=== PATIENT | female | born 1985 | race Caucasian/White ===

== ENCOUNTER 2021-03-15 17:42 | Observation (INO) ==
--- NOTE | 2021-03-15 18:04 | Emergency Department Note ---
HPI General Chief complaint: Recheck/Abnormal Lab/Rx Stated complaint: lab recheck Time Seen by Provider: 03/15/21 17:51 Source: patient Mode of arrival: ambulatory Limitations: no limitations History of Present Illness HPI Narrative: This is a 35-year-old female patient with hypertensive CKD who presents from her primary care doctor's office today for abnormal labs. Last creatinine was 3.6 in 05/11, now with a creatinine of 4.2. Additionally she has a potassium of 2.8. Medication list includes bumetanide daily and metolazone QOD. She is also on losartan and carvedilol. The patient relocated here from the [facility]. Her previous reliability engineer put her on bumetanide and metolazone, which has been continued by her current PCP. The patient makes urine and denies decreased urine output. The patient also has a history of heroin use now in recovery on Suboxone. She is also complaining of epigastric pain. This has been ongoing for her but much worse in the last 3 days. She describes it as a "burning sensation." No nausea or vomiting, no melena or hematochezia. Her medication list does include omeprazole 20 mg daily. She also has a history of pancreatitis and was admitted last year for this. She is status post cholecystectomy. She had an aortic dissection with repair several years ago. She has her [place] aortic valve status post repair. Drinks alcohol occasionally. Related Data Home Medications Medication Instructions Recorded Confirmed buprenorphine-naloxone 14 mg SL DAILY 03/05/20 01/28/21 carvedilol 25 mg PO BID 03/05/20 03/16/21 omeprazole 20 mg PO DAILY 03/05/20 01/28/21 tizanidine 2 mg PO PRN PRN 03/05/20 01/28/21 losartan 25 mg tablet 25 mg PO QDAY 04/25/20 03/16/21 bumetanide 2 mg tablet 2 mg PO QHS tab 04/26/20 03/16/21 ondansetron HCl 4 mg tablet 4 mg PO Q8H 05/11/20 01/28/21 buspirone 15 mg tablet 15 mg PO QDAY tab 10/31/20 03/16/21 escitalopram oxalate 20 mg tablet 20 mg PO QDAY 10/31/20 01/28/21 Previous Rx's Medication Instructions Recorded nifedipine 30 mg tablet,extended 30 mg PO HS #180 tab 05/11/20 release metolazone 2.5 mg tablet 2.5 mg PO Q OTHER DAY PRN #45 tab 01/28/21 potassium chloride 10 mEq 20 meq PO QDAY #90 tab 01/28/21 tablet,extended release Allergies Allergy/AdvReac Type Severity Reaction Status Date / Time No Known Drug Allergies Allergy Verified 01/28/21 13:24 Review of Systems ROS ROS Narrative: Narrative: All systems ED: reviewed and negative except as stated. PFSH Narrative Patient History Narrative: Narrative: Medical/Surgical/Family History All Active Problems (Updated 03/15/21 @ 20:43 by Lemuel Valentin MD) Current tobacco use (Acute) Gout (Acute) Stage 2 acute kidney injury (Acute) Diuretic-induced hypokalemia (Acute) Epigastric abdominal pain (Acute) CKD (chronic kidney disease) stage 5, GFR less than 15 ml/min (Acute) Hypokalemia (Acute) Localized edema due to fluid overload (Chronic) CKD (chronic kidney disease), stage IV (Acute) Metabolic acidosis (Chronic) Aortic insufficiency (Chronic) Anxiety disorder (Chronic) Other psychoactive substance abuse, in remission (Chronic) Biliary acute pancreatitis with uninfected necrosis (Chronic) Opioid dependence in remission (Chronic) Hyperkalemia (Chronic) Hypertension (Chronic) Pancreatitis (Chronic) Medical History Anxiety disorder Aortic insufficiency Biliary acute pancreatitis with uninfected necrosis Cholelithiasis Hyperkalemia Hypertension diagnosed at age 17 Metabolic acidosis Opioid dependence in remission Other psychoactive substance abuse, in remission Pancreatitis Surgical History History of aortic dissection (~2018) History of laparoscopic cholecystectomy Family History Mother Bipolar disorder Social History Smoking Status: Current every day smoker Alcohol Intake Frequency: does not drink Substance Use: former substance user Exam Narrative Narrative: General: AOx3, NAD, nontoxic appearing. Pleasant and conversant. HEENT: PERRLA, EOMI, normocephalic. Moist mucous membranes. Normal facies and normal dentition. Respiratory: Lungs clear to auscultation bilaterally. No respiratory distress. Unlabored breathing. Heart: Regular rate and rhythm, no murmurs/clicks/rubs. Abdomen: Notable epigastric tenderness that extends to the right upper quadrant, Non distended, normal bowel tones. No organomegaly. Extremities: Warm and well perfused. No edema. DP 2+ bilaterally. No venous stasis. Neuro: No focal deficits. Cranial nerves II-XII normal. Skin: Warm dry, no rashes or lesions, no cyanosis. Psych: Normal mood and affect Heme/Lymph: No bruising General Limitations: no limitations Course Course Course Narrative: 35-year-old female with hypertensive CKD is seen for abnormal labs and epigastric pain Reevaluation(s) Reevaluation #1: Repeat CMP, magnesium, check a lipase The patient appears well and is euvolemic on exam. The patient is given 1 dose of 1 mg Ativan for anxiety Reevaluation #2: CMP shows a creatinine of 4.2 and a potassium of 2.8 IV fluids been ordered for the patient and she is being given oral potassium replacement 60 mEq We will hold her bumetanide and metolazone I have spoken with her reliability engineer, Dr. Montilla, and he sees no indication for dialysis at this time. He recommends holding her loop diuretic and replacing her potassium. He will be out of the office next week and is not available for close follow-up. Regarding her epigastric pain, a lipase has been ordered and is pending. I am giving her a one-time IV dose of Pepcid. Vital Signs Vital signs: Vital Signs Temperature 98.4 F 03/15/21 17:43 Pulse Rate 81 03/15/21 17:43 Respiratory Rate 16 03/15/21 17:43 Blood Pressure 167/96 03/15/21 17:43 Pulse Oximetry (%) 98 03/15/21 17:43 Temperature 99.1 F H 03/16/21 07:52 Pulse Rate 67 03/16/21 06:07 Respiratory Rate 14 03/16/21 07:52 Blood Pressure 189/91 03/16/21 07:52 Pulse Oximetry (%) 93 03/16/21 07:52 MDM MDM Narrative Medical decision making narrative: Hypokalemia At risk for acute kidney injury Epigastric pain CKD stage IV/V I have spoken with the hospitalist for observation admission and correction of her hypokalemia, fluid hydration, and medication adjustments. The hospitalist has agreed for observation admission at this time and the patient meets observation criteria. Lab Data Result diagrams: 03/15/21 18:03 03/16/21 00:28 Labs: Lab Results 03/15/21 03/15/21 03/15/21 Range/Units 18:03 18:03 18:03 WBC 6.9 (4.5-11.0) K/mcL RBC 3.84 L (4.00-5.20) M/mcL Hgb 12.7 (12.0-15.0) g/dL Hct 38.1 (36.0-48.0) % MCV 99.2 (80.0-100.0) fL MCH 33.1 (26.0-34.0) pg MCHC 33.3 (31.0-36.0) g/dL RDW 11.6 (11.5-14.5) % Plt Count 160 (140-440) K/mcL MPV 11.5 H (7.4-10.4) fL Neut % (Auto) 68.9 (38.0-78.0) % Lymph % (Auto) 22.8 (15.0-49.0) % [place] % (Auto) 7.2 (1.0-12.0) % Eos % (Auto) 0.7 (0.0-7.0) % Baso % (Auto) 0.4 (0.0-2.0) % Lymph # (Auto) 1.58 (1.50-4.80) K/mcL [place] # (Auto) 0.50 (0.10-0.90) K/mcL Eos # (Auto) 0.05 (0.00-0.70) K/mcL Baso # (Auto) 0.03 (0.00-0.20) K/mcL Absolute Neutrophils 4.78 (1.80-8.00) K/mcL Sodium 133 (133-145) mmol/L Potassium 2.8 L* (3.3-5.1) mmol/L Chloride 92 L (96-108) mmol/L Carbon Dioxide 31 H (22-30) mmol/L Anion Gap 10.0 (8.0-16.0) BUN 66 H (6-20) mg/dL Creatinine 4.2 H (0.6-1.1) mg/dL GFR Calculation 13 Glucose 92 (70-105) mg/dL Calcium 9.3 (8.6-10.4) mg/dL Phosphorus 3.9 (2.5-4.5) mg/dL Magnesium 2.9 H (1.6-2.5) mg/dL Total Bilirubin 0.4 (0.1-1.0) mg/dL AST 66 H (<32) U/L ALT 45 H (<40) U/L Alkaline Phosphatase 196 H (39-117) U/L Total Protein 7.9 (5.9-8.4) gm/dL Albumin 4.4 (3.2-5.2) gm/dL Globulin 3.5 (2.2-3.7) gm/dL Albumin/Globulin Ratio 1.3 (1.0-2.3) Lipase 29 (7-60) U/L ED POC Tests ED POC Tests: [facility] - SARS Antigen Negative Discharge Plan Patient/Caregiver Discharge Instructions Pt seen by [employer]OT AND SHOE REPAIRMAN/PA only: Yes Clinical Impression: Diuretic-induced hypokalemia, Epigastric abdominal pain, CKD (chronic kidney disease) stage 5, GFR less than 15 ml/min Patient Disposition: Xfer As Outpt/Obs ([facility]) Condition: Fair Discharge Date/Time: 03/15/21 21:50
[2021-03-15 18:49] LABS: Basophils # (Auto) 0.03 K/mcL (0.00-0.20); Basophils % (Auto) 0.4 % (0.0-2.0); Eosinophils # (Auto) 0.05 K/mcL (0.00-0.70); Eosinophils % (Auto) 0.7 % (0.0-7.0); Hematocrit 38.1 % (36.0-48.0); Hemoglobin 12.7 g/dL (12.0-15.0); Lymphocytes # (Auto) 1.58 K/mcL (1.50-4.80); Lymphocytes % (Auto) 22.8 % (15.0-49.0); Mean Cell Volume 99.2 fL (80.0-100.0); Mean Corpuscular HGB Conc 33.3 g/dL (31.0-36.0); Mean Platelet Volume 11.5 fL (7.4-10.4); Monocytes % (Auto) 7.2 % (1.0-12.0); Neutrophils % (Auto) 68.9 % (38.0-78.0); Platelet Count 160 K/mcL (140-440); RBC 3.84 M/mcL (4.00-5.20); Red Cell Distribution Width 11.6 % (11.5-14.5); WBC 6.9 K/mcL (4.5-11.0)
[2021-03-15 18:51] LABS: Phosphorous 3.9 mg/dL (2.5-4.5)
[2021-03-15 19:03] LABS: ALT/SGPT 45 U/L (<40); AST/SGOT 66 U/L (<32); Albumin 4.4 gm/dL (3.2-5.2); Albumin/Globulin Ratio 1.3 (1.0-2.3); Alkaline Phosphatase 196 U/L (39-117); Bilirubin,Total 0.4 mg/dL (0.1-1.0); Blood Urea Nitrogen 66 mg/dL (6-20); Calcium 9.3 mg/dL (8.6-10.4); Carbon Dioxide 31 mmol/L (22-30); Chloride 92 mmol/L (96-108); Globulin 3.5 gm/dL (2.2-3.7); Glomerular Filtration Rate 13; Glucose 92 mg/dL (70-105)
[2021-03-15] MEDS ORDERED: POTASSIUM CHLORIDE 20 MEQ TABLET PO ONE (19:13)
[2021-03-15] MEDS ORDERED: 0.9 % SODIUM CHLORIDE 1,000 ML IV ONE (19:15)
[2021-03-15] MEDS ORDERED: LORazepam 1 MG TABLET PO ONE (19:53)
[2021-03-15] MEDS ORDERED: FAMOTIDINE/PF 20 MG/2 ML VIAL IV ONE (19:54)
[2021-03-15] MEDS ORDERED: 0.9 % SODIUM CHLORIDE 1,000 ML IV SCH (20:30)
[2021-03-15] MEDS ORDERED: ACETAMINOPHEN 325 MG TABLET PO PRN (20:30)
[2021-03-15] MEDS ORDERED: oxyCODONE HCL 5 MG TABLET PO PRN (20:30)
[2021-03-15] MEDS ORDERED: traZODone HCL 50 MG TABLET PO PRN ×2 (20:30→21:58)
[2021-03-15] MEDS ORDERED: ONDANSETRON 4 MG/2 ML VIAL IV PRN ×2 (20:30→21:58)
--- NOTE | 2021-03-15 20:49 | Internal Med History&Physical ---
HPI History of Present Illness Patient information: Note initiated : 03/15/21 at 8:37 pm Service Date, if different from initiated Date: [] Patient: Khadijah Finch a 35 y/o F admitted on for lab recheck. Chief Complaint: [] History of present illness: Ms. Finch is a 35 year old F history of aortic dissection status post repair, pancreatitis, chronic kidney disease presented with abnormal lab values. Over the past few days she has acute onset left first toe PIP joint pain, sharp, severe, localized. Over the same. Time, she also have intermittent epigastric, burning, ranging from mild to severe, pain. Due to her symptoms, she presented to her PCP office where they performed labs and found that she have elevated creatinine level as well as depressed potassium level. She was told to come to the ER for further evaluations. Repeat labs in our ER showed serum creatinine level of 4.2 (baseline 3.6), as well as a potassium level of 2.8. She declines any recent changes of her medications. Gastrointestinal Gastrointestinal: Present abdominal pain and nausea Musculoskeletal Musculoskeletal: Present arthralgias and joint swelling PFSH PFSH All Active Problems (Updated 03/15/21 @ 20:43 by Lemuel Valentin MD) Current tobacco use (Acute) Gout (Acute) Stage 2 acute kidney injury (Acute) Diuretic-induced hypokalemia (Acute) Epigastric abdominal pain (Acute) CKD (chronic kidney disease) stage 5, GFR less than 15 ml/min (Acute) Hypokalemia (Acute) Localized edema due to fluid overload (Chronic) CKD (chronic kidney disease), stage IV (Acute) Metabolic acidosis (Chronic) Aortic insufficiency (Chronic) Anxiety disorder (Chronic) Other psychoactive substance abuse, in remission (Chronic) Biliary acute pancreatitis with uninfected necrosis (Chronic) Opioid dependence in remission (Chronic) Hyperkalemia (Chronic) Hypertension (Chronic) Pancreatitis (Chronic) Medical History Anxiety disorder Aortic insufficiency Biliary acute pancreatitis with uninfected necrosis Cholelithiasis Hyperkalemia Hypertension diagnosed at age 17 Metabolic acidosis Opioid dependence in remission Other psychoactive substance abuse, in remission Pancreatitis Surgical History History of aortic dissection (~2018) History of laparoscopic cholecystectomy Family History Mother Bipolar disorder Social History marital status: legally occupational status: unemployed smoking status start date: 11/23/09 alcohol intake frequency: does not drink substance use type: former substance user MEDS/ALLERGIES Home Medications and Allergies Home Medications Medication Instructions Recorded Confirmed Type buprenorphine-naloxone 14 mg SL DAILY 03/05/20 01/28/21 History carvedilol 25 mg PO BID 03/05/20 01/28/21 History omeprazole 20 mg PO DAILY 03/05/20 01/28/21 History tizanidine 2 mg PO PRN PRN 03/05/20 01/28/21 History losartan 25 mg tablet 25 mg PO QDAY 04/25/20 01/28/21 History bumetanide 2 mg tablet 2 mg PO QHS tab 04/26/20 01/28/21 History nifedipine 30 mg tablet,extended 30 mg PO HS #180 tab 05/11/20 01/28/21 Rx release ondansetron HCl 4 mg tablet 4 mg PO Q8H 05/11/20 01/28/21 History buspirone 15 mg tablet 15 mg PO QDAY tab 10/31/20 01/28/21 History escitalopram oxalate 20 mg tablet 20 mg PO QDAY 10/31/20 01/28/21 History metolazone 2.5 mg tablet 2.5 mg PO Q OTHER DAY PRN #45 tab 01/28/21 01/28/21 Rx potassium chloride 10 mEq 20 meq PO QDAY #90 tab 01/28/21 01/28/21 Rx tablet,extended release Allergies Allergy/AdvReac Type Severity Reaction Status Date / Time No Known Drug Allergies Allergy Verified 01/28/21 13:24 EXAM Constitutional Vitals: Temp Pulse Resp BP Pulse Ox 36.9 C 73 15 151/89 100 03/15/21 17:43 03/15/21 20:01 03/15/21 20:01 03/15/21 20:01 03/15/21 20:01 General appearance: cooperative and no acute distress Head Head exam: Present atraumatic and normocephalic Eye Eye exam: Present EOMI and PERRL ENT ENT exam: Present mucous membranes moist, normal exam and normal external ear exam Neck Neck exam: Present normal inspection; Absent lymphadenopathy, tenderness and thyromegaly Respiratory Respiratory exam: Absent accessory muscle use, respiratory distress and wheezes Cardiovascular Cardiovascular exam: Present normal rate and rhythm; Absent JVD GI/Abdominal GI/Abdominal exam: Present normal bowel sounds, soft and tenderness; Absent organomegaly Extremities Exam Extremities exam: Present joint swelling, normal capillary refill and tenderness; Absent full ROM and normal inspection Neurological Exam Neurological exam: Present alert, CN II-XII intact and oriented X3; Absent motor sensory deficit Psychiatric Psychiatric exam: Present normal affect and normal mood; Absent anxious and depressed Skin Skin exam: Present dry and intact DATA Data Completed and Pending Labs: Labs from last 24 hours 03/15/21 03/15/21 03/15/21 18:03 18:03 18:03 WBC 6.9 RBC 3.84 L Hgb 12.7 Hct 38.1 MCV 99.2 MCH 33.1 MCHC 33.3 RDW 11.6 Plt Count 160 MPV 11.5 H Neut % (Auto) 68.9 Lymph % (Auto) 22.8 [place] % (Auto) 7.2 Eos % (Auto) 0.7 Baso % (Auto) 0.4 Lymph # (Auto) 1.58 [place] # (Auto) 0.50 Eos # (Auto) 0.05 Baso # (Auto) 0.03 Absolute Neutrophils 4.78 Sodium 133 Potassium 2.8 L* Chloride 92 L Carbon Dioxide 31 H Anion Gap 10.0 BUN 66 H Creatinine 4.2 H GFR Calculation 13 Glucose 92 Calcium 9.3 Phosphorus 3.9 Magnesium 2.9 H Total Bilirubin 0.4 AST 66 H ALT 45 H Alkaline Phosphatase 196 H Total Protein 7.9 Albumin 4.4 Globulin 3.5 Albumin/Globulin Ratio 1.3 Lipase 29 A/P Assessment and plan (1) CKD (chronic kidney disease) stage 5, GFR less than 15 ml/min: Status: Acute (2) Stage 2 acute kidney injury: Status: Acute (3) Hypokalemia: Status: Acute (4) Hypertension: Status: Chronic Comment: diagnosed at age 17 Qualifiers: Hypertension type: unspecified Qualified Code(s): I10 - Essential (primary) hypertension (5) Gout: Status: Acute (6) Current tobacco use: Status: Acute Narrative A/P Narrative: 1. Hypokalemia: Admit to observation med surg KCl 20mEq IV once NOW Repeat serum potassium level at midnight; if <3.5, repeat another KCl 20mEq IV once BMP in the AM to continue to trend serum potassium level 2. Acute on chronic kidney injury: Hold diuretics at this point Hold Losartan NS 1L bolus, followed by NS@125cc/hr Repeat BMP in AM to trend kidney functions 3. Gout, left 1st toe (Podagra): Indomethacin 50mg PO TID 4. Essential HTN: Okay to give Nifedipine but hold Losartan 5. Current tobacco use: Nicotine replacement therapy as needed 6. Epigastric abdominal pain: Please check serum lipase level to rule out acute pancreatitis NS 1L bolus, followed by NS@125cc/hr Oxycodone PRN moderate pain Time Spent With Patient Time: Total time spent is greater than 50% in coordination of care (as documented) at patient's floor/unit and/or counseling patient:
[2021-03-15] MEDS ORDERED: HEPARIN 5,000 UNIT/ML VIAL SQ SCH (21:00)
[2021-03-15] MEDS ORDERED: SENNOSIDES 1 TABLET PO SCH (21:00)
[2021-03-15] MEDS ORDERED: DOCUSATE SODIUM 100 MG CAPSULE PO SCH (21:00)
[2021-03-15] MEDS ORDERED: PANTOPRAZOLE 40 MG TABLET PO SCH (21:00)
[2021-03-15] MEDS ORDERED: INDOMETHACIN 25 MG CAPSULE PO SCH (21:00)
[2021-03-15] MEDS ORDERED: POTASSIUM CHLORIDE 20 MEQ in DEXTROSE 5% IN WATER 250 ML IV ONE (21:58)
[2021-03-15] MEDS ORDERED: 0.9 % SODIUM CHLORIDE 10 ML SYRINGE IV SCH (22:00)
[2021-03-15] MEDS ORDERED: POTASSIUM CHLORIDE 20 MEQ/10 ML VIAL IV ONE (22:30)
[2021-03-15] MEDS: 0.9 % SODIUM CHLORIDE 1,000 ML IV SCH (22:43)
[2021-03-15] MEDS: 0.9 % SODIUM CHLORIDE 10 ML SYRINGE IV SCH (22:45)
[2021-03-15] MEDS ORDERED: oxyCODONE HCL 5 MG TABLET PO ONE (22:53)
[2021-03-15] MEDS: oxyCODONE HCL 5 MG TABLET PO PRN (23:12)
[2021-03-16] MEDS ORDERED: POTASSIUM CHLORIDE 20 MEQ in DEXTROSE 5% IN WATER 250 ML IV PRN (01:00)
[2021-03-16] MEDS: METOPROLOL TARTRATE 5 MG/5 ML VIAL IV ONE ×4 (03:54→05:43)
[2021-03-16] MEDS: METOPROLOL TARTRATE 5 MG/5 ML VIAL IV PRN ×3 (03:54→05:58)
[2021-03-16] MEDS: 0.9 % SODIUM CHLORIDE 1,000 ML IV SCH ×3 (04:04→18:27)
[2021-03-16] MEDS: 0.9 % SODIUM CHLORIDE 10 ML SYRINGE IV SCH ×3 (04:04→20:24)
[2021-03-16] MEDS ORDERED: oxyCODONE HCL 5 MG TABLET PO ONE (04:09)
[2021-03-16] MEDS: oxyCODONE HCL 5 MG TABLET PO PRN (04:10)
[2021-03-16] MEDS ORDERED: METOPROLOL TARTRATE 5 MG/5 ML VIAL IV ONE (05:56)
[2021-03-16] MEDS ORDERED: INDOMETHACIN 25 MG CAPSULE PO SCH (09:00)
[2021-03-16 09:26] LABS: Blood Urea Nitrogen 54 mg/dL (6-20); Calcium 8.7 mg/dL (8.6-10.4); Carbon Dioxide 28 mmol/L (22-30); Chloride 101 mmol/L (96-108); Glomerular Filtration Rate 15; Glucose 77 mg/dL (70-105)
[2021-03-16] MEDS: HEPARIN 5,000 UNIT/ML VIAL SQ SCH ×3 (09:40→20:24)
[2021-03-16] MEDS: ACETAMINOPHEN 325 MG TABLET PO PRN ×2 (09:42→17:48)
[2021-03-16] MEDS: DOCUSATE SODIUM 100 MG CAPSULE PO SCH ×2 (09:55→20:24)
[2021-03-16] MEDS ORDERED: tiZANidine 4 MG TABLET PO PRN (10:03)
[2021-03-16] MEDS: METOPROLOL TARTRATE 5 MG/5 ML VIAL IV SCH ×2 (11:06→11:07)
[2021-03-16] MEDS: NALOXONE SL SCH (11:17)
[2021-03-16] MEDS: CARVEDILOL 12.5 MG TABLET PO SCH ×2 (11:17→17:42)
[2021-03-16] MEDS: BUPRENORPHINE SL SCH (11:17)
[2021-03-16] MEDS ORDERED: METOPROLOL TARTRATE 5 MG/5 ML VIAL IV PRN (11:49)
--- NOTE | 2021-03-16 12:04 | Internal Med Progress Note ---
SUBJECTIVE Subjective Patient information: Note initiated : 03/16/21 at 11:59 am Service Date, if different from initiated Date: [] Patient: Khadijah Finch 35 y/o F admitted on 03/15/21 for lab recheck. Chief Complaint: [Hypokalemia, acute kidney injury] Overnight: Serum potassium level 2.8-->2.9-->3.4-->3.2. Serum Cr level 4.2-->3.7. Blood pressure remains elevated Subjective: Denies chest pain or palpitation. Denies headache. Denies SOB. Denies confusion or lethargy. Denies abdominal pain. Denies nausea or vomiting. Constitutional Vitals: Vital Signs Temp Pulse Resp BP Pulse Ox 36.5 C 77 16 197/103 95 03/16/21 11:43 03/16/21 11:43 03/16/21 11:43 03/16/21 11:43 03/16/21 11:43 Period Temp Pulse Resp BP Sys/[place] Pulse Ox Last 24 Hr 36.5 C-37.4 C 64-81 10-19 133-197/78-103 93-100 Intake and Output 03/15/21 03/16/21 03/16/21 21:59 05:59 13:59 Intake Total 1000 926 994 Output Total 475 Balance 1000 451 994 Weight 64.155 kg 64.155 kg Intake & Output: Intake & Output 03/15/21 03/16/21 03/16/21 21:59 05:59 13:59 Intake Total 1000 926 994 Output Total 475 Balance 1000 451 994 Weight 64.155 kg 64.155 kg Intake: IV 1000 526 994 Sodium Chloride 0.9% 1,000 ml @ 1000 6 994 125 mls/hr IV .Q8H [facility] Rx#: [id number] Potassium Chloride 20 Meq In 520 Dextrose 5% in Water 250 ml @ 130 mls/hr IV PRN PRN Rx#: [id number] Oral 400 Output: Void Amount 475 Other: Meal Nourishment/Supplement Breakfast Percent of Meal Consumed 100% 100% Feeding Ability Independent Urine Appearance Clear Urine Color Bright Yellow Urine Odor Normal # Voids 1 1 General appearance: cooperative and no acute distress Head Head exam: Present atraumatic and normocephalic Eye Eye exam: Present EOMI and PERRL ENT ENT exam: Present mucous membranes moist, normal exam and normal external ear exam Neck Neck exam: Present normal inspection; Absent lymphadenopathy, tenderness and thyromegaly Respiratory Respiratory exam: Absent accessory muscle use, respiratory distress and wheezes Cardiovascular Cardiovascular exam: Present normal rate and rhythm; Absent JVD GI/Abdominal GI/Abdominal exam: Present normal bowel sounds and soft; Absent organomegaly and tenderness Extremities Exam Extremities exam: Present full ROM, normal capillary refill and normal inspection; Absent tenderness Neurological Exam Neurological exam: Present alert, CN II-XII intact and oriented X3; Absent motor sensory deficit Psychiatric Psychiatric exam: Present normal affect and normal mood; Absent anxious and depressed Skin Skin exam: Present dry and intact OBJ DATA Labs CBC & Chem 7: 03/15/21 18:03 03/16/21 07:10 Labs: Abnormal Lab Results 03/16/21 03/15/21 03/15/21 07:10 22:13 18:03 RBC MPV Potassium 3.2 L 2.9 L* 2.8 L* Chloride 92 L Carbon Dioxide 31 H Anion Gap 7.0 L BUN 54 H 66 H Creatinine 3.7 H 4.2 H Magnesium 2.9 H AST 66 H ALT 45 H Alkaline Phosphatase 196 H 03/15/21 18:03 RBC 3.84 L MPV 11.5 H Potassium Chloride Carbon Dioxide Anion Gap BUN Creatinine Magnesium AST ALT Alkaline Phosphatase Meds: Medications Acetaminophen (Acetaminophen 325 Mg Tablet) 650 mg PO Q6HP PRN; Protocol PRN Reason: Per Pain Protocol/Fever > 101 Last Admin: 03/16/21 09:42 Dose: 650 mg Documented by: Buspirone HCl (Buspirone 15 Mg Tablet) 15 mg PO QDAY [facility] Carvedilol ([facility] 12.5 Mg Tablet) [facility] Last Admin: 03/16/21 11:17 Dose: 25 mg Documented by: Docusate Sodium (Docusate Sodium 100 Mg Capsule) 100 mg PO BID [facility] Last Admin: 03/16/21 09:55 Dose: Not Given Documented by: Escitalopram Oxalate (Escitalopram 20 Mg Tablet) 20 mg PO QDAY [facility] Heparin Sodium (Porcine) (Heparin 5,000 Unit/Ml Vial) 5,000 unit SQ Q12 [facility] Last Admin: 03/16/21 09:55 Dose: Not Given Documented by: Sodium Chloride (Sodium Chloride 0.9%) 1,000 mls @ 125 mls/hr IV .Q8H [facility] Last Infusion: 03/16/21 09:55 Dose: Infused Documented by: Indomethacin (Indomethacin 25 Mg Capsule) 50 mg PO TID [facility] Last Admin: 03/16/21 09:40 Dose: 50 mg Documented by: Nifedipine (Nifedipine 30 Mg Tab.Xl.24h) 30 mg PO HS [facility] Ondansetron HCl (Ondansetron 4 Mg/2 Ml Vial) 4 mg IV Q6HP PRN PRN Reason: Nausea And Vomiting Pantoprazole Sodium (Pantoprazole 40 Mg Tablet) 40 mg PO HS [facility] Buprenorphine/Naloxone 8mg/2mg Oral Film 2 dose SL DAILY [facility] Last Admin: 03/16/21 11:17 Dose: 2 dose Documented by: Potassium Chloride (Potassium Chloride 10 Meq Tablet) 20 meq PO QDAY [facility] Senna (Sennosides 1 Tablet) 2 tab PO HS [facility] Sodium Chloride (0.9 % Sodium Chloride 10 Ml Syringe) 10 ml IV Q8 [facility] Last Admin: 03/16/21 04:04 Dose: Not Given Documented by: Tizanidine HCl (Tizanidine 4 Mg Tablet) 2 mg PO DAILYP PRN PRN Reason: Muscle Pain Trazodone HCl (Trazodone Hcl 50 Mg Tablet) 25 mg PO HSP PRN PRN Reason: Insomnia A/P Assessment and plan (1) CKD (chronic kidney disease) stage 5, GFR less than 15 ml/min: Status: Acute (2) Stage 2 acute kidney injury: Status: Acute (3) Hypokalemia: Status: Acute (4) Hypertension: Status: Chronic Comment: diagnosed at age 17 Qualifiers: Hypertension type: unspecified Qualified Code(s): I10 - Essential (primary) hypertension (5) Gout: Status: Acute (6) Current tobacco use: Status: Acute Narrative A/P Narrative: 1. Hypokalemia: Stays in observation med surg Hold diuretics that could re-introduce hypokalemia BMP in the AM to continue to trend serum potassium level 2. Acute on chronic kidney injury: Hold diuretics at this point Hold Losartan NS 1L bolus, followed by NS@125cc/hr Repeat BMP in AM to trend kidney functions 3. Gout, left 1st toe (Podagra): Indomethacin 50mg PO TID 4. Essential HTN: Okay to give Nifedipine and beta rik but hold Losartan Need to observe how her blood pressure is doing and fine turn her regimen Add Aldactone 50mg PO BID Lopressor 5mg IV q5min PRN SBP>=180mmHg and/or DBP>=110mmHg 5. Current tobacco use: Nicotine replacement therapy as needed 6. Epigastric abdominal pain: Please check serum lipase level to rule out acute pancreatitis-->29, normal, suggests AGAINST pancreatitis NS 1L bolus, followed by NS@125cc/hr Oxycodone PRN moderate pain Time Spent With Patient Time: Total time spent is greater than 50% in coordination of care (as documented) at patient's floor/unit and/or counseling patient: QUALITY VTE Deep Vein Thrombosis/Pulmonary Embolism Present on Admission: No
--- NOTE | 2021-03-16 14:15 | Internal Med Progress Note ---
SUBJECTIVE Subjective Patient information: Note initiated : 03/16/21 at 2:09 pm Service Date, if different from initiated Date: [] Patient: Khadijah Finch 35 y/o F admitted on 03/15/21 for lab recheck. Chief Complaint: [] Interval history: 03/15 Overnight: Serum potassium level 2.8-->2.9-->3.4-->3.2. Serum Cr level 4.2-->3.7. Blood pressure remains elevated 03/17 Constitutional Vitals: Vital Signs Temp Pulse Resp BP Pulse Ox 97.7 F 77 16 191/99 95 03/16/21 11:43 03/16/21 11:43 03/16/21 11:43 03/16/21 12:00 03/16/21 11:43 Period Temp Pulse Resp BP Sys/Moncada Pulse Ox Last 24 Hr 97.7 F-99.4 F 64-81 10-19 133-197/78-103 93-100 Intake and Output 03/16/21 03/16/21 03/16/21 05:59 13:59 21:59 Intake Total 926 994 Output Total 475 Balance 451 994 Weight 64.155 kg Intake & Output: Intake & Output 03/16/21 03/16/21 03/16/21 05:59 13:59 21:59 Intake Total 926 994 Output Total 475 Balance 451 994 Weight 64.155 kg Intake: IV 526 994 Sodium Chloride 0.9% 1,000 ml @ 6 994 125 mls/hr IV .Q8H CHARIS Rx#: [id number] Potassium Chloride 20 Meq In 520 Dextrose 5% in Water 250 ml @ 130 mls/hr IV PRN PRN Rx#: [id number] Oral 400 Output: Void Amount 475 Other: Meal Nourishment/Supplement Breakfast Percent of Meal Consumed 100% 100% Feeding Ability Independent Urine Appearance Clear Urine Color Bright Yellow Urine Odor Normal # Voids 1 1 Exam: General: Alert, Awake, No acute Distress Eyes/N/T: EOMI, Head/Neck: neck supple, CV: RRR, No murmurs, normal s1/s2 Pulm: Clear b/l, no wheezing/rhonchi/rales Abd: soft, nontender, +BS x4 Ext: no clubbing/cyanosis/edema Neuro: Alert, no focal deficits, moves all extremities, Skin: warm/dry OBJ DATA Labs CBC & Chem 7: 03/15/21 18:03 03/16/21 07:10 Labs: Abnormal Lab Results 03/16/21 03/15/21 03/15/21 07:10 22:13 18:03 RBC MPV Potassium 3.2 L 2.9 L* 2.8 L* Chloride 92 L Carbon Dioxide 31 H Anion Gap 7.0 L BUN 54 H 66 H Creatinine 3.7 H 4.2 H Magnesium 2.9 H AST 66 H ALT 45 H Alkaline Phosphatase 196 H 03/15/21 18:03 RBC 3.84 L MPV 11.5 H Potassium Chloride Carbon Dioxide Anion Gap BUN Creatinine Magnesium AST ALT Alkaline Phosphatase Meds: Medications Acetaminophen (Acetaminophen 325 Mg Tablet) 650 mg PO Q6HP PRN; Protocol PRN Reason: Per Pain Protocol/Fever > 101 Last Admin: 03/16/21 09:42 Dose: 650 mg Documented by: Buspirone HCl (Buspirone 15 Mg Tablet) 15 mg PO QDAY [facility] Carvedilol (Carvedilol 12.5 Mg Tablet) 25 mg PO BIDCC [facility] Last Admin: 03/16/21 11:17 Dose: 25 mg Documented by: Docusate Sodium (Docusate Sodium 100 Mg Capsule) 100 mg PO BID [facility] Last Admin: 03/16/21 09:55 Dose: Not Given Documented by: Escitalopram Oxalate (Escitalopram 20 Mg Tablet) 20 mg PO QDAY [facility]1983 Heparin Sodium (Porcine) (Heparin 5,000 Unit/Ml Vial) 5,000 unit SQ Q12 [facility] Last Admin: 03/16/21 09:55 Dose: Not Given Documented by: Sodium Chloride (Sodium Chloride 0.9%) 1,000 mls @ 125 mls/hr IV .Q8H [facility] Last Infusion: 03/16/21 09:55 Dose: Infused Documented by: Indomethacin (Indomethacin 25 Mg Capsule) 50 mg PO TID [facility] Last Admin: 03/16/21 09:40 Dose: 50 mg Documented by: Nifedipine (Nifedipine 30 Mg Tab.Xl.24h) 30 mg PO [facility] Ondansetron HCl (Ondansetron 4 Mg/2 Ml Vial) 4 mg IV Q6HP PRN PRN Reason: Nausea And Vomiting Pantoprazole Sodium (Pantoprazole 40 Mg Tablet) 40 mg PO HS [facility] Buprenorphine/Naloxone 8mg/2mg Oral Film 2 dose SL DAILY [facility] Last Admin: 03/16/21 11:17 Dose: 2 dose Documented by: Potassium Chloride (Potassium Chloride 10 Meq Tablet) 20 meq PO QDAY [facility] Senna (Sennosides 1 Tablet) 2 tab PO HS [facility] Sodium Chloride (0.9 % Sodium Chloride 10 Ml Syringe) 10 ml IV Q8 [facility] Last Admin: 03/16/21 04:04 Dose: Not Given Documented by: Spironolactone (Spironolactone 25 Mg Tablet) 50 mg PO BIDD [facility] Tizanidine HCl (Tizanidine 4 Mg Tablet) 2 mg PO DAILYP PRN PRN Reason: Muscle Pain Trazodone HCl (Trazodone Hcl 50 Mg Tablet) 25 mg PO HSP PRN PRN Reason: Insomnia A/P Narrative A/P Narrative: A: *Hypokalemia: Stays in observation med surg Hold diuretics that could re-introduce hypokalemia BMP in the AM to continue to trend serum potassium level *Acute on chronic kidney injury IV-V: Hold diuretics at this point, Hold Losartan NS 1L bolus, followed by NS@125cc/hr f/u with Neprhology *Gout, left 1st toe (Podagra): avoid NSAIDS given CKD, predisone daily *Essential HTN: Okay to give Nifedipine and coreg but hold Losartan Need to observe how her blood pressure is doing *Current tobacco use: Nicotine replacement therapy as needed *Epigastric abdominal pain likely GERD: lipase low started ppi with good results *h/o Meth/heroin: *Anxiety *ppx: heparin Time Spent With Patient Time: Total time spent is greater than 50% in coordination of care (as documented) at patient's floor/unit and/or counseling patient: [facility] VTE Deep Vein Thrombosis/Pulmonary Embolism Present on Admission: No
[2021-03-16] MEDS ORDERED: hydrALAZINE 20 MG/ML VIAL IV PRN (14:22)
--- NOTE | 2021-03-16 14:26 | Discharge Summary ---
Discharge Provider Provider Patient information: Note initiated : 03/16/21 at 2:23 pm Service Date, if different from initiated Date: [] Patient: Khadijah Finch 35 y/o F admitted on 03/15/21 for lab recheck. Chief Complaint: [] Date of admission: 03/15/21 21:50 Discharge date: 03/17/21 Primary care physician: Shashi Simon DO Discharge Meds Discharge Medications Home Medications carvedilol 25 mg PO BID 03/05/20 [History Confirmed 03/16/21 Last Taken 03/15/21] losartan 25 mg tablet 25 mg PO QHS 04/25/20 [History Confirmed 03/16/21 Last Taken 03/14/21] bumetanide 2 mg tablet 2 mg PO QHS tab 04/26/20 [History Confirmed 03/16/21 Last Taken 03/14/21] metolazone 2.5 mg tablet 2.5 mg PO Q OTHER DAY PRN #45 tab 01/28/21 [Rx Confirmed 03/16/21 Last Taken 03/11/21] buprenorphine-naloxone [Suboxone] 2 film SUBLINGUAL QDAY 03/16/21 [History Confirmed 03/16/21 Last Taken Unknown] buspirone 7.5 mg PO QHS 03/16/21 [History Confirmed 03/16/21 Last Taken Unknown] escitalopram oxalate 20 mg PO QHS 03/16/21 [History Confirmed 03/16/21 Last Taken Unknown] nifedipine 60 mg PO QAM 03/16/21 [History Confirmed 03/16/21 Last Taken Unknown] omeprazole 20 mg PO QDAY 03/16/21 [History Confirmed 03/16/21 Last Taken Unknown] ondansetron 8 mg PO Q8H PRN 03/16/21 [History Confirmed 03/16/21 Last Taken Unknown] tizanidine 4 mg PO Q6HP PRN 03/16/21 [History Confirmed 03/16/21 Last Taken Unknown] potassium chloride 20 meq PO Q48H #10 tab 03/17/21 [Rx Last Taken Unknown] prednisone 40 mg PO QDAY #1 tab 03/17/21 [Rx Last Taken Unknown] COURSE Hospital Course Hospital course: A: *Hypokalemia: Stays in observation med surg Hold diuretics that could re-introduce hypokalemia BMP in the AM to continue to trend serum potassium level *Acute on chronic kidney injury IV-V: Hold diuretics at this point, Hold Losartan NS 1L bolus, followed by NS@125cc/hr f/u with Neprhology *Gout, left 1st toe (Podagra): avoid NSAIDS given CKD, predisone daily *Essential HTN: Okay to give Nifedipine and coreg but hold Losartan Need to observe how her blood pressure is doing *Current tobacco use: Nicotine replacement therapy as needed *Epigastric abdominal pain likely GERD: lipase low started ppi with good results *h/o Meth/heroin: *Anxiety Discharge diagnosis: hypoKalemia acute kidney injury gout Secondary discharge diagnosis: Hypertension tobacco abuse history of substance abuse GERD Time Spent with Patient Time attestation: Total time spent providing and/or coordinating discharge services: Time spent: Greater than 30 minutes EXAM Constitutional Vitals: Temp Pulse Resp BP Pulse Ox 97.7 F 77 16 191/99 95 03/16/21 11:43 03/16/21 11:43 03/16/21 11:43 03/16/21 12:00 03/16/21 11:43 Discharge Data Data Completed and Pending Labs on day of discharge: Labs from last 24 hours 03/16/21 03/16/21 03/15/21 07:10 00:28 22:13 WBC RBC Hgb Hct MCV MCH MCHC RDW Plt Count MPV Neut % (Auto) Lymph % (Auto) Fleming % (Auto) Eos % (Auto) Baso % (Auto) Lymph # (Auto) Fleming # (Auto) Eos # (Auto) Baso # (Auto) Absolute Neutrophils Sodium 136 Potassium 3.2 L 3.4 2.9 L* Chloride 101 Carbon Dioxide 28 Anion Gap 7.0 L BUN 54 H Creatinine 3.7 H GFR Calculation 15 Glucose 77 Calcium 8.7 Phosphorus Magnesium Total Bilirubin AST ALT Alkaline Phosphatase Total Protein Albumin Globulin Albumin/Globulin Ratio Lipase 03/15/21 03/15/21 03/15/21 18:03 18:03 18:03 WBC 6.9 RBC 3.84 L Hgb 12.7 Hct 38.1 MCV 99.2 MCH 33.1 MCHC 33.3 RDW 11.6 Plt Count 160 MPV 11.5 H Neut % (Auto) 68.9 Lymph % (Auto) 22.8 Fleming % (Auto) 7.2 Eos % (Auto) 0.7 Baso % (Auto) 0.4 Lymph # (Auto) 1.58 Fleming # (Auto) 0.50 Eos # (Auto) 0.05 Baso # (Auto) 0.03 Absolute Neutrophils 4.78 Sodium 133 Potassium 2.8 L* Chloride 92 L Carbon Dioxide 31 H Anion Gap 10.0 BUN 66 H Creatinine 4.2 H GFR Calculation 13 Glucose 92 Calcium 9.3 Phosphorus 3.9 Magnesium 2.9 H Total Bilirubin 0.4 AST 66 H ALT 45 H Alkaline Phosphatase 196 H Total Protein 7.9 Albumin 4.4 Globulin 3.5 Albumin/Globulin Ratio 1.3 Lipase 29 Discharge Plan Patient/Caregiver Discharge Instructions Activity: increase activity as tolerated Diet: Renal Activity Restrictions/Additional Instructions: hold bumex for 2-days then restart Prescriptions: New potassium chloride 20 mEq tablet,ER particles/crystals 20 meq PO Q48H Qty: 10 RF: 0 prednisone 10 mg tablet 40 mg PO QDAY Qty: 1 RF: 0 Continued losartan 25 mg tablet 25 mg PO QHS RF: 0 bumetanide 2 mg tablet 2 mg PO QHS RF: 0 metolazone 2.5 mg tablet 2.5 mg PO Q OTHER DAY PRN (Reason: edema) Qty: 45 RF: 4 carvedilol 25 MG tablet 25 mg PO BID RF: 0 buprenorphine-naloxone [Suboxone] 8-2 mg Film 2 film SUBLINGUAL QDAY RF: 0 nifedipine 60 mg Tablet Extended Release 60 mg PO QAM RF: 0 buspirone 7.5 mg Tablet 7.5 mg PO QHS RF: 0 omeprazole 20 mg Capsule,Delayed Release(Dr/Ec) 20 mg PO QDAY RF: 0 escitalopram oxalate 20 mg Tablet 20 mg PO QHS RF: 0 ondansetron 8 mg Tablet,Disintegrating 8 mg PO Q8H PRN (Reason: Nausea) RF: 0 tizanidine 4 mg Tablet 4 mg PO Q6HP PRN (Reason: Muscle Spasm) RF: 0 Discontinued potassium 20 MG Tablet,Chewable 40 mg PO PRN MDD 40 MG PRN (Reason: TAKE WITH METALAZONE PRN) RF: 0 Other Ambulatory Orders: Basic Metabolic Panel (Routine) Timeframe: 3 Days Facility: [facility] - Location: Laboratory Ordered By: Naveed Gatica Follow Up Plan Follow up with: [place] MD [Physician] - (hypokalemia, and hypertension) Shashi Simon DO [Primary Care Provider] - Patient Disposition: Home, Self-Care Prognosis: Undetermined Overall status at discharge: patient is progressing back to baseline Discharge Orders: Discharge Order (Routine); Ordered 03/17/21 Ordered By: Naveed Gatica [facility] VTE Deep Vein Thrombosis/Pulmonary Embolism Present on Admission: No
[2021-03-16] MEDS: predniSONE 20 MG TABLET PO SCH (15:14)
[2021-03-16] MEDS ORDERED: SPIRONOLACTONE 25 MG TABLET PO SCH (16:00)
[2021-03-16] MEDS ORDERED: NIFEdipine 30 MG TAB.XL.24H PO SCH (21:00)
[2021-03-16] MEDS ORDERED: PANTOPRAZOLE 40 MG TABLET PO SCH (21:00)
[2021-03-16] MEDS ORDERED: SENNOSIDES 1 TABLET PO SCH (21:00)
[2021-03-16] MEDS ORDERED: ESCITALOPRAM 20 MG TABLET PO SCH (23:00)
[2021-03-16] MEDS ORDERED: busPIRone 15 MG TABLET PO SCH (23:00)
[2021-03-16] MEDS: LABETALOL 5 MG/ML ML IV PRN (23:16)
[2021-03-17] MEDS: ACETAMINOPHEN 325 MG TABLET PO PRN ×2 (00:08→10:10)
[2021-03-17] MEDS: LABETALOL 5 MG/ML ML IV PRN (01:39)
[2021-03-17] MEDS: 0.9 % SODIUM CHLORIDE 10 ML SYRINGE IV SCH (05:11)
[2021-03-17] MEDS: 0.9 % SODIUM CHLORIDE 1,000 ML IV SCH (05:30)
[2021-03-17] MEDS ORDERED: NIFEdipine 30 MG TAB.XL.24H PO ONE ×2 (06:46→12:44)
--- NOTE | 2021-03-17 06:48 | Internal Med Progress Note ---
SUBJECTIVE Subjective Patient information: Note initiated : 03/17/21 at 6:42 am Service Date, if different from initiated Date: [] Patient: Khadijah Finch a 35 y/o F admitted on 03/15/21 for lab recheck. Chief Complaint: [] Interval history: 03/15 Overnight: Serum potassium level 2.8-->2.9-->3.4-->3.2. Serum Cr level 4.2-->3.7. Blood pressure remains elevated 03/17 Doing better. Wanted to go home. Sound like we did not have her Procardia ac curate. She says she takes 60 in the morning and 30 at night. She states she is takes potassium 1-2 times a week whenever she takes metolazone. Constitutional Vitals: Vital Signs Temp Pulse Resp BP Pulse Ox 97.8 F 64 14 143/86 95 03/17/21 03:50 03/17/21 03:50 03/17/21 03:50 03/17/21 03:50 03/17/21 03:50 Period Temp Pulse Resp BP Sys/Moncada Pulse Ox Last 24 Hr 97.7 F-99.1 F 61-79 14-16 133-197/72-103 93-96 Intake and Output 03/16/21 03/17/21 03/17/21 21:59 05:59 13:59 Intake Total 1500 Output Total 775 Balance 725 Weight 65.799 kg Intake & Output: Intake & Output 03/16/21 03/17/21 03/17/21 21:59 05:59 13:59 Intake Total 1500 Output Total 775 Balance 725 Weight 65.799 kg Intake: IV 1000 Sodium Chloride 0.9% 1,000 ml @ 1000 75 mls/hr IV .[id number] [facility] Rx#: [id number] Oral 500 Output: Void Amount 775 Other: Meal Lunch Nourishment/Supplement Percent of Meal Consumed 75% 100% Feeding Ability Independent Urine Appearance Clear Clear Urine Color Bright Yellow Bright Yellow Urine Odor Normal Normal OBJ DATA Labs CBC & Chem 7: 03/15/21 18:03 03/17/21 05:25 Labs: Abnormal Lab Results 03/16/21 03/15/21 03/15/21 07:10 22:13 18:03 RBC MPV Potassium 3.2 L 2.9 L* 2.8 L* Chloride 92 L Carbon Dioxide 31 H Anion Gap 7.0 L BUN 54 H 66 H Creatinine 3.7 H 4.2 H Magnesium 2.9 H AST 66 H ALT 45 H Alkaline Phosphatase 196 H 03/15/21 18:03 RBC 3.84 L MPV 11.5 H Potassium Chloride Carbon Dioxide Anion Gap BUN Creatinine Magnesium AST ALT Alkaline Phosphatase Meds: Medications Acetaminophen (Acetaminophen 325 Mg Tablet) 650 mg PO Q6HP PRN; Protocol PRN Reason: Per Pain Protocol/Fever > 101 Last Admin: 03/17/21 00:08 Dose: 650 mg Documented by: Buspirone HCl (Buspirone 15 Mg Tablet) 15 mg PO QHS [facility] Last Admin: 03/16/21 23:16 Dose: 15 mg Documented by: [facility]il[facility] ([facility].5 [facility]t) [facility] Last Admin: 03/16/21 17:42 Dose: 25 mg Documented by: Docusate Sodium (Docusate Sodium 100 Mg Capsule) 100 mg PO BID [facility] Last Admin: 03/16/21 20:24 Dose: Not Given Documented by: Escitalopram Oxalate (Escitalopram 20 Mg Tablet) 20 mg PO QHS [facility] Last Admin: 03/16/21 23:16 Dose: 20 mg Documented by: Heparin Sodium (Porcine) (Heparin 5,000 Unit/Ml Vial) 5,000 unit SQ Q12 [facility] Last Admin: 03/16/21 20:24 Dose: Not Given Documented by: Sodium Chloride (Sodium Chloride 0.9%) 1,000 mls @ 75 mls/hr IV .[id number] [facility] Last Admin: 03/17/21 05:30 Dose: 75 mls/hr Documented by: Labetalol HCl (Labetalol 5 Mg/Ml Ml) 10 - 20 mg IV Q2H PRN PRN Reason: Hypertension Last Admin: 03/17/21 01:39 Dose: 10 mg Documented by: Nifedipine (Nifedipine 30 Mg Tab.Xl.24h) 30 mg PO [facility] Last Admin: 03/16/21 20:23 Dose: 30 mg Documented by: Ondansetron HCl (Ondansetron 4 Mg/2 Ml Vial) 4 mg IV Q6HP PRN PRN Reason: Nausea And Vomiting Last Admin: 03/16/21 18:38 Dose: 4 mg Documented by: Pantoprazole Sodium (Pantoprazole 40 Mg Tablet) 40 mg PO [facility] Last Admin: 03/16/21 20:23 Dose: 40 mg Documented by: Buprenorphine/Naloxone 8mg/2mg Oral Film 2 dose SL DAILY [facility] Last Admin: 03/16/21 11:17 Dose: 2 dose Documented by: Potassium Chloride (Potassium Chloride 10 Meq Tablet) 20 meq PO QDAY [facility] Prednisone (Prednis[facility] 20 Mg Tablet) [facility] Last Admin: 03/16/21 15:14 Dose: 40 mg Documented by: Senna (Sennosides 1 Tablet) 2 tab PO [facility] Last Admin: 03/16/21 20:24 Dose: Not Given Documented by: Sodium Chloride (0.9 % Sodium Chloride 10 Ml Syringe) 10 ml IV Q8 [facility] Last Admin: 03/17/21 05:11 Dose: Not Given Documented by: Tizanidine HCl (Tizanidine 4 Mg Tablet) 2 mg PO DAILYP PRN PRN Reason: Muscle Pain Trazodone HCl (Trazodone Hcl 50 Mg Tablet) 25 mg PO HSP PRN PRN Reason: Insomnia A/P Narrative A/P Narrative: A: *Hypokalemia: observation med surg Hold diuretics for now that could re-introduce hypokalemia BMP in the AM to continue to trend serum potassium level *Acute on chronic kidney injury IV-V: Hold diuretics at this point, Hold Losartan IVF f/u with Neprhology *Gout, left 1st toe (Podagra): avoid NSAIDS given CKD, predisone daily *Essential HTN: Okay to give Nifedipine (increase to 60 daily) and coreg but hold Losartan Need to observe how her blood pressure is doing *Current tobacco use: Nicotine replacement therapy as needed *Epigastric abdominal pain likely GERD: lipase low start ppi *h/o Meth/heroin: *Anxiety *ppx: heparin Time Spent With Patient Time: Total time spent is greater than 50% in coordination of care (as documented) at patient's floor/unit and/or counseling patient: [facility] VTE Deep Vein Thrombosis/Pulmonary Embolism Present on Admission: No
[2021-03-17 08:12] LABS: Blood Urea Nitrogen 51 mg/dL (6-20); Carbon Dioxide 25 mmol/L (22-30); Chloride 104 mmol/L (96-108); Glomerular Filtration Rate 15; Glucose 134 mg/dL (70-105)
[2021-03-17] MEDS: CARVEDILOL 12.5 MG TABLET PO SCH (08:41)
[2021-03-17] MEDS: NALOXONE SL SCH (08:43)
[2021-03-17] MEDS: BUPRENORPHINE SL SCH (08:43)
[2021-03-17] MEDS: predniSONE 20 MG TABLET PO SCH (08:44)
[2021-03-17] MEDS ORDERED: ESCITALOPRAM 20 MG TABLET PO SCH (09:00)
[2021-03-17] MEDS ORDERED: busPIRone 15 MG TABLET PO SCH (09:00)
[2021-03-17] MEDS ORDERED: POTASSIUM CHLORIDE 10 MEQ TABLET PO SCH (09:00)
[2021-03-17] MEDS: HEPARIN 5,000 UNIT/ML VIAL SQ SCH (10:22)
[2021-03-17] MEDS: DOCUSATE SODIUM 100 MG CAPSULE PO SCH (10:22)
--- NOTE | 2021-03-17 11:27 | Discharge Summary ---
Discharge Provider Provider Patient information: Note initiated : 03/17/21 at 11:23 am Service Date, if different from initiated Date: [] Patient: Khadijah Finch 35 y/o F admitted on 03/15/21 for lab recheck. Chief Complaint: [] Date of admission: 03/15/21 21:50 Discharge date: 03/17/21 Primary care physician: Shashi Simon DO Discharge Meds Discharge Medications Home Medications carvedilol 25 mg PO BID 03/05/20 [History Confirmed 03/16/21 Last Taken 03/15/21] losartan 25 mg tablet 25 mg PO QHS 04/25/20 [History Confirmed 03/16/21 Last Taken 03/14/21] bumetanide 2 mg tablet 2 mg PO QHS tab 04/26/20 [History Confirmed 03/16/21 Last Taken 03/14/21] metolazone 2.5 mg tablet 2.5 mg PO Q OTHER DAY PRN #45 tab 01/28/21 [Rx Confirmed 03/16/21 Last Taken 03/11/21] buprenorphine-naloxone [Suboxone] 2 film SUBLINGUAL QDAY 03/16/21 [History Confirmed 03/16/21 Last Taken Unknown] buspirone 7.5 mg PO QHS 03/16/21 [History Confirmed 03/16/21 Last Taken Unknown] escitalopram oxalate 20 mg PO QHS 03/16/21 [History Confirmed 03/16/21 Last Taken Unknown] nifedipine 60 mg PO QAM 03/16/21 [History Confirmed 03/16/21 Last Taken Unknown] omeprazole 20 mg PO QDAY 03/16/21 [History Confirmed 03/16/21 Last Taken Unknown] ondansetron 8 mg PO Q8H PRN 03/16/21 [History Confirmed 03/16/21 Last Taken Unknown] tizanidine 4 mg PO Q6HP PRN 03/16/21 [History Confirmed 03/16/21 Last Taken Unknown] potassium chloride 20 meq PO Q48H #10 tab 03/17/21 [Rx Last Taken Unknown] prednisone 40 mg PO QDAY #1 tab 03/17/21 [Rx Last Taken Unknown] COURSE Hospital Course Hospital course: Patient sent in by primary care for hypokalemia and elevated above baseline creatinine. 03/15 Overnight: Serum potassium level 2.8-->2.9-->3.4-->3.2. Serum Cr level 4.2-->3.7. Blood pressure remains elevated 03/17 Doing better. Wanting to go home. Sound like we did not have her Procardia accurate. She says she takes 60 in the morning and 30 at night. Creatinine stable and sodium level within normal limits. She states she is takes potassium 1-2 times a week whenever she takes metolazone. A: *Hypokalemia: -take potassium supp every other day until seen by PCP/Nephrology *Acute on chronic kidney injury IV-V: stable -f/u with Dr. Montilla *Gout, left 1st toe (Podagra): -short course of prednisone daily *Essential HTN: *Current tobacco use: *Epigastric abdominal pain likely GERD: -start ppi *h/o Meth/heroin: *Anxiety Discharge diagnosis: Hypokalemia acute on chronic kidney disease gout GERD Secondary discharge diagnosis: Hypertension tobacco abuse drug use anxiety Time Spent with Patient Time attestation: Total time spent providing and/or coordinating discharge services: Time spent: Greater than 30 minutes EXAM Constitutional Vitals: Temp Pulse Resp BP Pulse Ox 98.5 F 67 16 141/83 94 03/17/21 07:31 03/17/21 07:31 03/17/21 07:31 03/17/21 07:31 03/17/21 07:31 Discharge Data Data Completed and Pending Labs on day of discharge: Labs from last 24 hours 03/17/21 05:25 Sodium 138 Potassium 4.4 Chloride 104 Carbon Dioxide 25 Anion Gap 9.0 BUN 51 H Creatinine 3.6 H GFR Calculation 15 Glucose 134 H Calcium 9.0 Discharge Plan Patient/Caregiver Discharge Instructions Activity: increase activity as tolerated Diet: Renal Activity Restrictions/Additional Instructions: hold bumex for 2-days then restart Prescriptions: New potassium chloride 20 mEq tablet,ER particles/crystals 20 meq PO Q48H Qty: 10 RF: 0 prednisone 10 mg tablet 40 mg PO QDAY Qty: 1 RF: 0 Continued losartan 25 mg tablet 25 mg PO QHS RF: 0 bumetanide 2 mg tablet 2 mg PO QHS RF: 0 metolazone 2.5 mg tablet 2.5 mg PO Q OTHER DAY PRN (Reason: edema) Qty: 45 RF: 4 carvedilol 25 MG tablet 25 mg PO BID RF: 0 buprenorphine-naloxone [Suboxone] 8-2 mg Film 2 film SUBLINGUAL QDAY RF: 0 nifedipine 60 mg Tablet Extended Release 60 mg PO QAM RF: 0 buspirone 7.5 mg Tablet 7.5 mg PO QHS RF: 0 omeprazole 20 mg Capsule,Delayed Release(Dr/Ec) 20 mg PO QDAY RF: 0 escitalopram oxalate 20 mg Tablet 20 mg PO QHS RF: 0 ondansetron 8 mg Tablet,Disintegrating 8 mg PO Q8H PRN (Reason: Nausea) RF: 0 tizanidine 4 mg Tablet 4 mg PO Q6HP PRN (Reason: Muscle Spasm) RF: 0 Discontinued potassium 20 MG Tablet,Chewable 40 mg PO PRN MDD 40 MG PRN (Reason: TAKE WITH METALAZONE PRN) RF: 0 Other Ambulatory Orders: Basic Metabolic Panel (Routine) Timeframe: 3 Days Facility: [facility] - Location: Laboratory Ordered By: Naveed Gatica Follow Up Plan Follow up with: [place] MD [Physician] - (hypokalemia, and hypertension) Shashi Simon DO [Primary Care Provider] - Patient Disposition: Home, Self-Care Prognosis: Undetermined Overall status at discharge: patient is progressing back to baseline Discharge Orders: Discharge Order (Routine); Ordered 03/17/21 Ordered By: Naveed Gatica [facility] VTE Deep Vein Thrombosis/Pulmonary Embolism Present on Admission: No
== END 2021-03-17 13:10 | disposition home or self-care (01) ==
LOC: MEDSUR 17:42 → ED 17:42 → MEDSUR 21:50
PROVIDERS: ADMIT Internal Medicine; ATTEND Internal Medicine